=== PATIENT | female | born 1945 | race Caucasian/White ===

== ENCOUNTER 2022-05-28 22:05 | Inpatient (IN) | payer OTHER ==
[~2022-05-28] VITALS: Ht 160 cm; Wt 72.6 kg
--- NOTE | 2022-05-28 23:00 | NUR ---
TO ER BED 3. BIBRA 60 FROM HOME C/O PALPITATIONS FOR THE PAST FEW DAYS. PT IS ALERT AND ORIENTED. AMBULATORY WITH STEADY GAIT. CONNECTED TO MONITOR. AWAITING MD MARTINEZ
--- NOTE | 2022-05-28 23:30 | NUR ---
IV LINE ESTABLISHED, RAC20G. BLOOD COLLECTED AND SENT TO LAB
--- NOTE | 2022-05-28 23:30 | NUR ---
COVID SWAB COLLECTED AND SENT TO LAB
--- NOTE | 2022-05-28 23:33 | NUR ---
XRAY AT BEDSIDE
[2022-05-28 23:35] LABS: BASOPHILS % (AUTO) 0.4 % (0.0-2.0); EOSINOPHILS % (AUTO) 0.5 % (0.0-6.0); HEMATOCRIT 36 % (33-45); HEMOGLOBIN 11.6 g/dL (11.5-14.8); LYMPHOCYTES % (AUTO) 22.1 % (20.0-44.0); MEAN CORPUSCULAR HGB CONC 32 g/dl (31.0-36.0); MEAN CORPUSCULAR VOLUME 87 fL (82-100); MONOCYTES # (AUTO) 0.8 K/uL (0.1-1.30); MONOCYTES % (AUTO) 8.6 % (2.0-12.0); NEUTROPHILS # (AUTO) 6.2 K/uL (1.8-8.9); NEUTROPHILS % (AUTO) 68.4 % (43.0-81.0); PLATELET COUNT (AUTO) 212 K/uL (150-450); RED BLOOD CELL COUNT(AUTO) 4.16 MIL/uL (4.0-5.2); WHITE BLOOD COUNT (AUTO) 9.1 K/uL (4.3-11.0)
[2022-05-28 23:56] LABS: ALANINE AMINOTRANSFERASE 24 U/L (12-78); ALBUMIN 3.8 g/dL (3.4-5.0); ALKALINE PHOSPHATASE 54 U/L (46-116); ASPARTATE AMINOTRANSFERASE 18 U/L (15-37); BILIRUBIN,DIRECT 0.1 mg/dL (0.0-0.2); BILIRUBIN,TOTAL 0.4 mg/dL (0.2-1.0); CARBON DIOXIDE 28 mmol/L (21-32); CHLORIDE 106 mmol/L (98-107); CREATININE 0.7 mg/dL (0.6-1.3); GLUCOSE 110 mg/dL (74-106); POTASSIUM 3.7 mmol/L (3.5-5.1); SODIUM SERUM 141 mmol/L (136-145); UREA NITROGEN, BLOOD 15 mg/dL (7-18)
--- NOTE | 2022-05-29 02:42 | NUR ---
PICKING TABLE WORKER AT PT'S BEDSIDE
--- NOTE | 2022-05-29 04:58 | NUR ---
MATCHER OPERATOR AT PT'S BEDSIDE
[2022-05-29] MEDS ORDERED: BUPR-54 PO (09:14)
[2022-05-29] MEDS ORDERED: LORA-259 PO (09:14)
--- NOTE | 2022-05-29 09:47 | NUR ---
BED 323-2
--- NOTE | 2022-05-29 09:51 | NUR ---
REPORT GIVEN TO RAN CANALES FOR ANYA
[2022-05-29 12:00] VITALS: BP 111/63
[2022-05-29 16:00] VITALS: BP 131/70
--- NOTE | 2022-05-29 18:53 | NUR ---
BIOINFORMATICS ASSOCIATE CLOSING NOTE PATIENT BROUGHT TO UNIT FROM ER VIA [employer] @ 1000. AMBULATED TO BED WITH MINIMAL ASSIST. PATIENT C/O HEARTBURN SENSATION AND PAIN TO MIDDLE CHEST AREA. PATIENT APPEARED VERY ANXIOUS AND DISTRESSED UPON ADMISSION ASSESSMENT. STATED SHE HAS NO HISTORY OF HEART CONDITIONS, BUT DOES SUFFER FROM VERTIGO. PATIENT IV ACCESS SITE TO RAC 20G PATENT AND FLUSHING WELL. TELE MONITOR PLACED ON PATIENT WITH SR AND HR IN 70-80'S. PATIENT HAS CONTINUOS C/O OF DISCOMFORT TO CHEST AREA. STTED ' I FEEL LIKE I NEED TO BELCH". REQUESTED [employer] FOR DINNER. WAS GIVEN ELIER MIRZA; PATIENT STATED DRINK WAS EFFECTIVE. CONTINUES TO C/O OF CHEST DISCOMFORT. NO PRN SCHEDULED OR ORDERED. WILL ENDORSE TO ON COMING NURSE. SAFETY CHECKS IN PLACE WITH BED IN LOWEST POSTITION AND LOCKED. CALL LIGHT WITHIN REACH. WILL CONTINUE TO MONITOR.
--- NOTE | 2022-05-29 19:15 | NUR ---
APPEALS EXAMINER OPENING NOTE RECEIVED PATIENT RESTING IN BED; AWAKE, ALERT AND ORIENTED X4. BREATHING EVEN AND NONLABORED. NOT IN ANY FORM OF RESPIRATORY DISTRESS. DENIES ANY PAIN OR DISCOMFORT OF THIS TIME. ON ROOM AIR; TOLERATING WELL. WITH IV ACCESS ON RIGHT ANTECUBITAL; PATENT, INTACT AND SALINE LOCKED. ABLE TO MAKE NEEDS KNOWN. SAFETY MEASURES IMPLEMENTED: HEAD OF BED ELEVATED TO 30 DEGREES, CALL LIGHT AND TABLE WITHIN REACH, SIDE RAILS UP X2, BED IN LOWEST LOCKED POSITION. WILL CONTINUE TO MONITOR
[2022-05-29 20:00] VITALS: BP 138/62
--- NOTE | 2022-05-29 20:16 | NUR ---
AUDIO VISUAL ENGINEER NOTE PATIENT COMPLAINED OF EPIGASTRIC PAIN /; OUTBOARD MOTORS EXPERIMENTAL MECHANIC HOSPITALIST MADE AWARE WITH NEW ORDER MADE AND CARRIED OUT.
[2022-05-29] MEDS: HYDROCODONE/APAP 10/325MG TABLET PO PRN (20:33)
--- NOTE | 2022-05-29 20:33 | NUR ---
SENIOR STORAGE ENGINEER NOTE PATIENT REFUSED TO TAKE PRN NORCO 10/325 MG. PATIENT VERBALIZED "IT WILL MAKE MORE SICK.'
[2022-05-29] MEDS ORDERED: LORAZEPAM 1 MG TABLET PO SCH (22:00)
[2022-05-30] VITALS: BP 100/45
[2022-05-30 04:00] VITALS: BP 109/59
--- NOTE | 2022-05-30 07:06 | NUR ---
METAL EXTRUSION SUPERVISOR CLOSING NOTE PATIENT IN BED, RESTING, A/O X4. ABLE TO MAKE NEEDS KNOWN. STABLE ON ROOM AIR. BREATHING EVENLY AND NONLABORED. NO SOB OR S/SX OF DISTRESS NOTED. ON TELEMETRY MONITORING WITH CURRENT READING OF SR HR-68BPM WITH PVC. IV ACCESS ON RIGHT ANTECUBITAL #20, SALINE LOCKED, PATENT AND INTACT. ALL NEEDS ATTENDED TO. SAFETY PRECAUTIONS MAINTAINED: BED IN LOWEST, LOCKED POSITION, SIDERAILS UP X2, CALL LIGHT AND TABLE WITHIN REACH. ENDORSED TO MORNING SHIFT FOR ANYA
--- NOTE | 2022-05-30 07:30 | NUR ---
RIVERBOAT CAPTAIN NOTES PT IN BED, AWAKE, ALERT AND ORIENTED, DENIES PAIN OR ANY DISCOMFORT, RESPIRATIONS NORMAL, CALL LIGHT WITHIN REACH.
[2022-05-30 08:00] VITALS: BP 113/58
[2022-05-30] MEDS: BUPROPION XL 150 MG TAB.ER.24 PO SCH (08:17)
[2022-05-30] MEDS ORDERED: LORAZEPAM 1 MG TABLET PO SCH (09:00)
[2022-05-30] MEDS ORDERED: PANT40TA2 PO (09:03)
[2022-05-30] MEDS: PANTOPRAZOLE 40 MG TABLET.DR PO SCH (09:38)
--- NOTE | 2022-05-30 09:39 | NUR ---
PAPER BALING MACHINE OPERATOR NOTES PT IN BED, SEEN AND EXAMINED BY DR. CHAVARRIA, CT ABD ORDERED, PER MD, PT OK TO BE DISCHARGED ONCE CLEARED BY CARDIO AND CT NEGATIVE, PT INFORMED, VERBALIZED UNDERSTANDING.
--- NOTE | 2022-05-30 12:38 | NUR ---
LEADER ASSEMBLER NOTES RELAYED CT ABDOMEN RESULT TO DR. CHAVARRIA, PT SEEN BY DR. JOHNSON, PER DR. JOHNSON, PT IS NOT CLEARED TO GET DISCHARGED AND NEEDS A PACEMAKER, DR. CHAVARRIA INFORMED.
[2022-05-30] MEDS ORDERED: ALPRAZOLAM 0.25 MG TABLET PO PRN (13:30)
--- NOTE | 2022-05-30 16:12 | NUR ---
PT'S MD'S PHONE NUMBERS PT'S ELECTRONIC PLOTTING SYSTEM OPERATOR DR. BING DOWNEY [phone], PT'S PCP DR. CHEL MO [phone].
--- NOTE | 2022-05-30 19:26 | NUR ---
COURIER DELIVERY DRIVER NOTES PT IN BED, AWAKE, ALERT AND ORIENTED, STATED THAT SHE FEELS NOT GOOD AFTER WALKING TO THE BATHROOM, PROVIDED BEDSIDE COMMODE AND REMINDED PT TO CALL IF SHE NEEDS HELP GETTING TO THE COMMODE, PT IS NOT SURE IF SHE WILL CONSENT TO TOMORROW'S PACEMAKER PLACEMENT, DR. JOHNSON MADE AWARE, SPOKE WITH PT'S OWN PARKING REGULATION ENFORCEMENT OFFICER DR. DOWNEY, PT STILL HESITANT, SAID SHE WILL THINK ABOUT IT, CALL LIGHT PLACED WITHIN REACH, ALL NEEDS ATTENDED.
--- NOTE | 2022-05-30 19:30 | NUR ---
TELE/RN OPENING NOTE RECEIVED PATIENT RESTING IN BED. AWAKE, ALERT AND ORIENTED X 4. ABLE TO MAKE NEEDS KNOWN. VISIBLY ANXIOUS REGARDING SURGERY IN AM - WILL ADMINISTER ANTI-ANXIETY MEDS PER MD ORDERS. PATIENT IS ALERT AND ORIENTED X 4. ABLE TO MAKE NEEDS KNOWN. DENIES PAIN AT THIS TIME. CONTINUES ON ROOM AIR WITH NO S/SX OF RESPIRATORY DISTRESS NOTED. IV ACCESS TO RIGHT AC #20G INTACT, PATENT AND SALINE LOCKED. BSC IN PLACE - PATIENT IS STEADY WITH TRANSFERRING. PATIENT TO BE NPO POST MIDNIGHT FOR PLANNED PACEMAKER INSERTION IN AM. CALL LIGHT WITHIN REACH. ASPIRATION, FALL AND SAFETY PRECAUTIONS MAINTAINED. ALL NEEDS ATTENDED TO AT THIS TIME.
[2022-05-30 20:00] VITALS: BP 120/64
[2022-05-30] MEDS ORDERED: MAG HYDROX/AL HYDROX/SIMETH 30 ML UDC PO PRN (21:00)
[2022-05-31] VITALS: BP 123/57
[2022-05-31] MEDS: HYDROCODONE/APAP 10/325MG TABLET PO PRN (03:38)
[2022-05-31 04:00] VITALS: BP 112/62
--- NOTE | 2022-05-31 04:00 | NUR ---
TELE/RN NOTE PATIENT REFUSING TO SIGN CONSENTS FOR PROCEDURE AT THIS TIME. STATES SHE WANTS TO SIGN THEM BEFORE GOING TO OR WITH DOCTOR. COMPLETED MOST OF SURGICAL CHECKLIST AND PLACED IN CHART.
--- NOTE | 2022-05-31 06:30 | NUR ---
TELE/RN CLOSING NOTE PATIENT CURRENTLY SLEEPING IN BED. ALERT AND ORIENTED X 4. ABLE TO MAKE NEEDS KNOWN. DENIES PAIN AT THIS TIME. CONTINUES ON ROOM AIR WITH NO S/SX OF RESPIRATORY DISTRESS NOTED. IV ACCESS TO RIGHT AC #20G INTACT, PATENT AND SALINE LOCKED. BSC IN PLACE - PATIENT IS STEADY WITH TRANSFERRING. PATIENT HAS BEEN NPO SINCE MIDNIGHT FOR PLANNED PACEMAKER INSERTION THIS AM. CALL LIGHT WITHIN REACH. ASPIRATION, FALL AND SAFETY PRECAUTIONS MAINTAINED. WILL ENDORSE PLAN OF CARE TO ONCOMING SHIFT RN. Addendum: 05/31/22 at 0635 by ALBERTA LEMUS RN CURRENT TELE READING SR HR 61. PER LINING FINISHER PATIENTS PULSE GOES DOWN TO HIGH 40'S.
--- NOTE | 2022-05-31 07:30 | NUR ---
RN OPENING NOTES PT RECEIVED ON BED AWAKE . ALERT AND ORIENTED X 4. ABLE TO MAKE NEEDS KNOWN. DENIES PAIN AT THIS TIME. ROOM AIR WITH NO S/SX OF RESPIRATORY DISTRESS NOTED. IV ACCESS TO RIGHT AC #20G INTACT, PATENT AND SALINE LOCKED. BSC IN PLACE . PATIENT HAS BEEN NPO SINCE MIDNIGHT FOR PLANNED PACEMAKER INSERTION TODAY , CALL LIGHT WITHIN REACH. ASPIRATION, FALL AND SAFETY PRECAUTIONS MAINTAINED. WILL CONTINUE TO MONITOR
[2022-05-31 08:00] VITALS: BP 108/53
[2022-05-31] MEDS ORDERED: FAMOTIDINE/PF INJ 20 MG/2 ML VIAL IV ONE (08:34)
[2022-05-31] MEDS ORDERED: CLINDAMYCIN 900 MG/6 ML VIAL ONE (08:34)
[2022-05-31] MEDS: BUPROPION XL 150 MG TAB.ER.24 PO SCH ×2 (09:26→09:27)
[2022-05-31] MEDS: PANTOPRAZOLE 40 MG TABLET.DR PO SCH ×2 (09:26→09:27)
--- NOTE | 2022-05-31 09:35 | NUR ---
RN NOTES PATIENT ABLE TO SIGN WITH CONSENT FOR ANESTHESIA , INSERTION OF PACEMAKER AND FOR BLOOD TRANSFUSION
[2022-05-31] MEDS ORDERED: IOHEXOL 240MG/ML 0 ML IV ONE (09:37)
[2022-05-31] MEDS ORDERED: LIDOCAINE 1% INJ 50 ML MDV IJ ONE (09:37)
--- NOTE | 2022-05-31 09:45 | NUR ---
RN NOTE PATIENT VERIFICATION SPECIALIST GOING TO SURGERY DEPT FOR PACEMAKER INSERTION .
--- NOTE | 2022-05-31 13:27 | NUR ---
RN NOTE PATIENT C/O OF PAIN ON LEFT HIP AND SHE SAID SHE CANNOT HAVE NORCO AND MD AWARE WITH ORDER OF IBUPROFEN 600 MG PO PRN PAIN , AND ALSO WITH ORDER FROM MD TO DO STAT LEFT HIP XRAY 2 VIEW DUE TO C/O PAIN
[2022-05-31] MEDS: IBUPROFEN 600 MG TABLET PO PRN ×2 (13:52→22:32)
--- NOTE | 2022-05-31 14:34 | NUR ---
RN NOTE PATIENT CAME BACK FROM SURGERY , S/P PACEMAKER INSERTION , KEPT COMFORTABLE TO BED V/S TAKEN AND AWAKE AND ABLE TO MAKE NEEDS KNOWN , DRESSING ON THE LEFT UPPER CHEST , SEEN BY DR TORREZ BOARDER STEAM AND HE SAID TO CONTINUE THE UNEMPLOYMENT BENEFITS CLAIMS TAKER UNTIL PATIENT IS STABILIZED AND FOR D/C PLANNING
--- NOTE | 2022-05-31 18:50 | NUR ---
CARDIOVASCULAR DISEASE SPECIALIST CLOSING NOTES PATIENT S/P PACEMAKER INSERTION , AWAKE AND ABLE TO MAKE NEEDS KNOWN , CONTINUE WITH LIP AND GATE BUILDER PER DR TORREZ TO MONITOR THE STATUS OF PACEMAKER , V/S IN STABLE CONDITION , C/O OF PAIN ON LEFT HIP AND WITH ORDER OF IBUPROFEN 600 MG PO Q6 PRN AND WITH HELP AND MD WITH ORDER FOR XRAY OF THE LEFT HIP AND NEGATIVE FOR FX OR DISLOCATION , PAIN MEDS GIVEN AND WITH HELP , NO SOB OR DISTRESS NOTED , WILL ENDORSED TO THE NEXT SHIFT
--- NOTE | 2022-05-31 18:59 | NUR ---
RN NOTE ON EXTERNAL SALES PROJECT ENGINEER AND READING OF V-PACING 79
--- NOTE | 2022-05-31 19:15 | NUR ---
SIGNALS INTELLIGENCE SUPERINTENDENT OPENING NOTES PATIENT IS AWAKE, ALERT AND ORIENTED X4. ABLE TO MAKE NEEDS KNOWN. NO SOB NOR CARDIAC DISTRESS NOTED. ON S/P PACEMAKER INSERTION. ON ANESTHESIOLOGY PHYSICIAN WITH TELE READING OF V-PACING 77. DENIES PAIN OR DISCOMFORT AT THIS TIME. ON ROOM AIR AND TOLERATING WELL. IV ACCESS ON LAC #20G SL PATENT AND INTACT. SAFETY MEASURES IN PLACE: CALL LIGHT WITHIN REACH, SIDE RAILS UP X2, BED LOCKED IN LOWEST POSITION, BED ALARM ON. KEPT RESTED AND COMFORTABLE. CALL LIGHT WITHIN REACH FOR HELP. WILL CONTINUE TO MONITOR THROUGHOUT THE SHIFT.
[2022-05-31 20:00] VITALS: BP 110/48
[2022-05-31 21:20] VITALS: BP 116/64
[2022-05-31] MEDS: LORAZEPAM 1 MG TABLET PO PRN (21:22)
[2022-06-01] VITALS: BP 108/61
[2022-06-01 04:00] VITALS: BP_SYST 108; BP_SYST 118; BP_DIAS 53
[2022-06-01 06:32] LABS: BASOPHILS % (AUTO) 0.2 % (0.0-2.0); EOSINOPHILS % (AUTO) 0.6 % (0.0-6.0); HEMATOCRIT 34 % (33-45); HEMOGLOBIN 11.2 g/dL (11.5-14.8); LYMPHOCYTES # (AUTO) 1.9 K/uL (0.8-4.8); LYMPHOCYTES % (AUTO) 25.6 % (20.0-44.0); MEAN CORPUSCULAR HGB CONC 33 g/dl (31.0-36.0); MEAN CORPUSCULAR VOLUME 88 fL (82-100); MONOCYTES % (AUTO) 13.6 % (2.0-12.0); NEUTROPHILS # (AUTO) 4.4 K/uL (1.8-8.9); PLATELET COUNT (AUTO) 181 K/uL (150-450); RED BLOOD CELL COUNT(AUTO) 3.93 MIL/uL (4.0-5.2); WHITE BLOOD COUNT (AUTO) 7.3 K/uL (4.3-11.0)
--- NOTE | 2022-06-01 06:51 | NUR ---
ENVIRONMENTAL FIELD SERVICES TECHNICIAN CLOSING NOTES PATIENT IN BED ASLEEP, AROUSES EASILY. ABLE TO MAKE NEEDS KNOWN. NO SOB NOR CARDIAC DISTRESS NOTED. ON S/P PACEMAKER INSERTION. ON SNOWBOARDER WITH TELE READING OF V-PACING 79. DENIES PAIN OR DISCOMFORT AT THIS TIME. ON ROOM AIR AND TOLERATING WELL. IV ACCESS ON LAC #20G SL PATENT AND INTACT. SAFETY MEASURES IN PLACE: CALL LIGHT WITHIN REACH, SIDE RAILS UP X2, BED LOCKED IN LOWEST POSITION, BED ALARM ON. KEPT RESTED AND COMFORTABLE. CALL LIGHT WITHIN REACH FOR HELP. WILL ENDORSE TO DAY SHIFT NURSE FOR CONTINUITY OF CARE.
[2022-06-01 06:57] LABS: CALCIUM, SERUM 8.5 mg/dL (8.5-10.1); CREATININE 0.8 mg/dL (0.6-1.3); POTASSIUM 4.2 mmol/L (3.5-5.1)
--- NOTE | 2022-06-01 07:57 | NUR ---
SALES INCENTIVE ANALYST OPENING NOTES RECEIVED PATIENT RESTING COMFORTABLY IN BED. NO SIGNS OF DISTRESS OR DISCOMFORT NOTED AT THIS.ALERT ORIENTED X 4. BREATHING EVENLY AND UNLABORED. IV ACCESS RAC GAUGE 20 SL INTACT AND PATENT.SAFETY PRECAUTIONS IN PLACE BED IN LOW LOCK POSITION , SIDE RAILS UP X 2 AND CALL LIGHT WITHIN REACH . WILL CONTINUE TO MONITOR.
[2022-06-01] MEDS: BUPROPION XL 150 MG TAB.ER.24 PO SCH (08:38)
[2022-06-01] MEDS: PANTOPRAZOLE 40 MG TABLET.DR PO SCH (08:39)
--- NOTE | 2022-06-01 09:30 | NUR ---
RN NOTE Patient complained of generalized pain, patient was talking to daughter on the phone when she asked for pain medication, so assessed patient's pain level using hicks-de león, 7/10 on pain scale. Scroggins PRN given. Will continue to monitor patient.
[2022-06-01] MEDS: HYDROCODONE/APAP 10/325MG TABLET PO PRN (09:46)
--- NOTE | 2022-06-01 10:00 | NUR ---
RN NOTE Patient complained of tingling on her fingers, and stated that she doesn't do well with [place]. Dr. Sommer notified and ordered to discontinue medication. Advised patient to increase fluid intake. Will continue to monitor patient.
--- NOTE | 2022-06-01 10:30 | NUR ---
RN NOTE Patient states she feels better. Assisted patient to sit on edge of her bed. Will continue to monitor.
[2022-06-01] MEDS ORDERED: ONDANSETRON HCL/PF 4 MG/2 ML VIAL IV PRN (12:30)
[2022-06-01] MEDS: IBUPROFEN 600 MG TABLET PO PRN ×2 (12:55→22:06)
--- NOTE | 2022-06-01 19:00 | NUR ---
SYSTEMS ANALYST ENGINEER CLOSING NOTES PATIENT RESTING COMFORTABLY IN BED. NO SIGNS OF DISTRESS OR DISCOMFORT NOTED AT THIS.ALERT ORIENTED X 4. BREATHING EVENLY AND UNLABORED. IV ACCESS RAC GAUGE 20 SL INTACT AND PATENT.ON TELE MONITORING 83 BPM SINUS RHYTHM WITH PAC .ALL DUE MEDS GIVEN AND NO ADVERSE REACTION NOTED . ALL NEEDS ATTENDED AND MET. SAFETY PRECAUTIONS IN PLACE BED IN LOW LOCK POSITION , SIDE RAILS UP X 2 AND CALL LIGHT WITHIN REACH . WILL ENDORSE TO DIAMOND CLEANER NURSE FOR ANYA.
--- NOTE | 2022-06-01 19:30 | NUR ---
RN OPENING NOTES RECEIVED PT IN BED, WATCHING TV. AOx4, ABLE TO MAKE NEEDS KNOWN. ON RA AND TOLERATING WELL. NO SOB NOTED. NO S/SX OF RESPIRATORY DISTRESS NOTED. IV ACCESS IN RAC #20G AND R WRIST #20G. IV IS INTACT, PATENT, AND FLUSHING WELL. SAFETY PRECAUTIONS IN PLACE: BED IN LOWEST, LOCKED POSITION, SIDERAILS UPx2, AND BRAKES ON. TABLE AND CALL LIGHT WITHIN REACH. WILL CONTINUE TO MONITOR.
[2022-06-01] MEDS: LORAZEPAM 1 MG TABLET PO PRN (22:07)
--- NOTE | 2022-06-01 22:07 | NUR ---
RN NOTES ADMINISTERED ATIVAN PER PT REQUEST. VS WNL. WILL CONTINUE TO MONITOR.
--- NOTE | 2022-06-02 07:55 | NUR ---
SLIVER LAP TENDER OPENING NOTES REPORT RECEIVED PATIENT ALERT A&OX4 SITTING ON BED. PATIENT ON ROOM AIR, CALM AND ABLE TO TOLERATE WELL/ ABLE TO MAKE NEEDS KNOWN. S/P POST PACEMAKER INSERTION. TELEMONITOR SHOWS AV PACING AT 61 BPM WITH NO COMPLAINTS OF ANY CARDIAC ARRHYTHMIAS. PATIENT NOT SHOWING ANY S/SX OF RESPIRATORY DISTRESS. PATIENT SITTING ON RA WITH NO SIGNS AND SYMPTOMS OF RESPIRATORY DISTRESS. ON CARDIAC DIET. IV AT R WRIST WITH #20G SALINE LOCK PATENT AND INTACT WITH NO SIGNS OF INFILTRATION OR INFECTION. ALL SAFETY FALL PRECAUTIONS IN PLACE BED LOCK ON, BED ALARM ON, BED IN LOWEST POSITION, SIDE RAILS UP, CALL LIGHT AND TRAY TABLE WITHIN WITHIN REACH. WILL CONTINUE TO MONITOR DURING MY SHIFT.
[2022-06-02 08:00] VITALS: BP 108/56
[2022-06-02] MEDS: BUPROPION XL 150 MG TAB.ER.24 PO SCH (09:16)
[2022-06-02] MEDS: PANTOPRAZOLE 40 MG TABLET.DR PO SCH (09:16)
--- NOTE | 2022-06-02 14:37 | NUR ---
CAREER SERVICES REPRESENTATIVE NOTES PT DISCHARGED HOME IN STABLE CONDITION. A/O X4. ABLE TO MAKE NEEDS KNOWN. PT ON ROOM AIR, TOLERATING WELL WITH NO SOB NOTED. V/S TAKEN, STABLE AND RECORDED. DRESSING ON LCW PACEMAKER INCISION SITE C/D/I. ALL BELONGINGS ACCOUNTED FOR AND BELONGINGS LIST SIGNED BY PT. IV ACCESSES ON RAC G#20 AND RIGHT WRIST G#20 REMOVED WITH NO ACTIVE BLEEDING NOTED, DRY PRESSURE DRESSINGS APPLIED AT SITES. HEALTH TEACHINGS/DISCHARGE INSTRUCTIONS GIVEN TO PT AND VERBALIZED UNDERSTANDING. PT'S OWN MEDICATIONS RETURNED TO PT. PT LEFT UNIT AT 1430 VIA WC ACCOMPANIED BY CLAUDIA HUYNH TO BE PICKED UP AT THE [facility] BY SON AND . MD AND CHARGE NURSE AWARE OF DC.
== END 2022-06-02 14:45 | disposition home or self-care (01) | DRG 244 ==
LOC: ER 22:10 → TRANSITION 05-29 04:12 → TELE 05-29 09:37
PROVIDERS: ADMIT Internal Medicine; ATTEND Internal Medicine
PROC: 0JH606Z Insertion of Pacemaker, Dual Chamber into Chest Subcutaneous Tissue and Fascia, Open Approach (ICD-10-PCS; principal; 2022-05-31)
PROC: 02H63JZ Insertion of Pacemaker Lead into Right Atrium, Percutaneous Approach (ICD-10-PCS; 2022-05-31)
PROC: 02HK3JZ Insertion of Pacemaker Lead into Right Ventricle, Percutaneous Approach (ICD-10-PCS; 2022-05-31)
DX: I44.1 Atrioventricular block, second degree (principal); I49.5 Sick sinus syndrome; Z88.0 Allergy status to penicillin; Z20.822 Contact with and (suspected) exposure to COVID-19; J45.909 Unspecified asthma, uncomplicated; E78.5 Hyperlipidemia, unspecified; Z87.11 Personal history of peptic ulcer disease; R10.13 Epigastric pain
CPT/HCPCS: 36415; 71045-TC; 73502; 80048-TC; 80076-TC; 84443-TC; 84484-TC; 85025-TC; 85730-TC; 87081-TC; 93307-TC; A4565; C1786; C9803; G0378; J2405; J2704; J3490; J7030; J7040; Q9966